=== PATIENT | female | born 1960 | race Caucasian/White ===

== ENCOUNTER 2018-06-17 07:50 | Day surgery (SDC) | payer BC ==
[2018-06-15 10:21] LABS: BASOPHILS # (AUTO) 0.03 x10^3/uL (0-0.1); BASOPHILS % (AUTO) 1 % (0-1); EOSINOPHILS # (AUTO) 0.08 x10^3/uL (0-0.4); EOSINOPHILS % (AUTO) 2 % (1-7); LYMPHOCYTES % (AUTO) 45 % (22-44); MD NO; MEAN CORPUSCULAR HEMOGLOBIN 29.7 pg (27.0-34.8); MEAN CORPUSCULAR VOLUME 87.5 fL (80-100); MONOCYTES # (AUTO) 0.39 x10^3/uL (0.2-0.8); MONOCYTES % (AUTO) 7 % (2-9); NEUTROPHILS # (AUTO) 2.58 x10^3/uL (1.8-6.8); NEUTROPHILS % (AUTO) 46 % (42-75); PLATELET COUNT 279 x10^3/uL (130-400); RED BLOOD COUNT 4.85 x10^6/uL (3.82-5.3); RED CELL DISTRIBUTION WIDTH 12.1 % (9.6-15.2)
[2018-06-15 10:28] LABS: ANION GAP 4 mmol/L (5-15); CALCIUM 9.2 mg/dL (8.5-10.1); CHLORIDE 106 mmol/L (98-107); CREATININE 0.87 mg/dL (0.55-1.02)
[~2018-06-17] VITALS: Ht 167.6 cm; Wt 86.3 kg
[~2018-06-17 07:50] MED LIST: ESTR0.5T PO
[2018-06-17 08:12] VITALS: BP 128/72
[2018-06-17] MEDS ORDERED: SODIUM CHLORIDE 0.9% 1,000 ML IV SCH (08:17)
[2018-06-17] MEDS ORDERED: ISOPROTERENOL 0.2MG/ML, 1ML ONE ×2 (08:42→10:38)
[2018-06-17] MEDS ORDERED: MIDAZOLAM 1 MG/ML, 2ML ONE ×2 (08:42→10:59)
[2018-06-17] MEDS ORDERED: FENTANYL PF 100 MCG/2ML ONE (08:42)
[2018-06-17] MEDS ORDERED: ASPI-496 PO (08:45)
[2018-06-17] MEDS ORDERED: LIDOCAINE 1%, 20ML ONE (09:51)
[2018-06-17] MEDS ORDERED: ACETAMINOPHEN 325 MG TABLET PO PRN (11:30)
[2018-06-18] MEDS ORDERED: ESTRADIOL 0.5 MG PO SCH (09:00)
[2018-06-18] MEDS ORDERED: TEMPLATE NON-FORMULARY MED. (Aspirin** (Aspir 81**) 81 MG) PO SCH (09:00)
== END 2018-06-17 15:45 | disposition home or self-care (01) ==
LOC: CACL 07:50
PROVIDERS: ATTEND Internal Medicine Cardiovascular Disease
DX: I47.1 Supraventricular tachycardia (principal); Z72.89 Other problems related to lifestyle
CPT/HCPCS: 36415; 71046; 80048; 85025; 93653; 99156; 99157; C1730; C1766; C1894; C2630; J2250; J3010; J3490

== ENCOUNTER 2018-06-29 13:20 | Emergency (ER) | payer BC ==
[~2018-06-29] VITALS: Ht 167.6 cm; Wt 88.9 kg
[~2018-06-29 13:20] MED LIST changes: +ASPI-496 PO
[2018-06-29 13:22] VITALS: BP 155/92
[2018-06-29 14:12] LABS: BASOPHILS # (AUTO) 0.03 x10^3/uL (0-0.1); BASOPHILS % (AUTO) 0 % (0-1); EOSINOPHILS # (AUTO) 0.08 x10^3/uL (0-0.4); EOSINOPHILS % (AUTO) 1 % (1-7); LYMPHOCYTES # (AUTO) 2.65 x10^3/uL (1-3.4); LYMPHOCYTES % (AUTO) 34 % (22-44); MD NO; MEAN CORPUSCULAR HEMOGLOBIN 29.3 pg (27.0-34.8); MEAN CORPUSCULAR HGB CONC 33.6 g/dL (32.4-35.8); MEAN CORPUSCULAR VOLUME 87.3 fL (80-100); MONOCYTES # (AUTO) 0.52 x10^3/uL (0.2-0.8); MONOCYTES % (AUTO) 7 % (2-9); NEUTROPHILS # (AUTO) 4.56 x10^3/uL (1.8-6.8); NEUTROPHILS % (AUTO) 58 % (42-75); PLATELET COUNT 344 x10^3/uL (130-400); RED BLOOD COUNT 4.77 x10^6/uL (3.82-5.3); RED CELL DISTRIBUTION WIDTH 12.1 % (9.6-15.2)
[2018-06-29 14:21] LABS: ALBUMIN 3.5 g/dL (3.4-5.0); ANION GAP 4 mmol/L (5-15); CALCIUM 9.4 mg/dL (8.5-10.1); CHLORIDE 108 mmol/L (98-107)
[2018-06-29 14:26] LABS: CREATININE 0.82 mg/dL (0.55-1.02); TROPONIN I < 0.015 ng/mL (0.000-0.045)
--- NOTE | 2018-06-29 15:02 | NUR ---
PT BROUGHT BACK FROM THE LOBBY
--- NOTE | 2018-06-29 15:11 | NUR ---
ALL OF PT'S LABS AND IMAGINING RESULTED. AWAITING PROVIDER TO SEE PT AND DISPO.
--- NOTE | 2018-06-29 15:54 | NUR ---
Patient/Caregiver given discharge instructions and they have confirmed that they understand the instructions. Patient ambulatory with steady gait.
== END 2018-06-29 15:56 | disposition home or self-care (01) ==
LOC: ED 15:50
DX: R07.89 Other chest pain (principal)
CPT/HCPCS: 36415; 71045; 80048; 82040; 83880; 84484; 85025; 93005; 99284